=== PATIENT | male | born 1980 | race Caucasian/White ===

== ENCOUNTER 2019-06-30 06:24 | Emergency (ER) ==
[2019-06-30 06:29] VITALS: BP 174/100; TEMP 98.2; BMI 32.4
[2019-06-30] MEDS: SODIUM CHLORIDE 1,000 ML IV STA (06:48)
--- NOTE | 2019-06-30 06:49 | ED.PDOC ---
General Stated Complaint: Patient is a 38 year old male who has no medical problems who comes to the ER with complains of right lower quadrant abdominal pain that started 2 hours ago. Woke him from bed. States has some trouble urinating. Time Seen by Physician: 06:38 Mode of Arrival: Walk-In Information Source: Patient Exam Limitations: No limitations Nursing and Triage Documentation Reviewed and Agree: Yes Does patient meet sepsis criteria?: No System Inflammatory Response Syndrome: Not Applicable <GIOVANNI MONIQUE - Last Filed: 06/30/19 07:05> <FLYNN CROSS - Last Filed: 06/30/19 10:03> ED Provider: Dr. FLYNN CROSS Chief Complaint: Abdominal Pain Primary Care Provider: LIONEL ALBRIGHT Sepsis Protocol: For patient's 13 years and over: Temp is 96.8 and below OR 101 and greater Pulse >90 BPM Resp >20/minute Acutely Altered Mental Status Are patient's symptoms suggestive of a new infection, such as: -Pneumonia -Skin, Soft Tissue -Endocarditis -UTI -Bone, Joint Infection -Implantable Device -Acute Abdominal Infection -Wound Infection -Meningitis -Blood Stream Catheter Infection -Unknown GI Complaint Exam - Abdominal Pain Complaint/Exam Onset: Sudden Duration: 2 hours Symptoms Are: Still present Timing: Constant Initial Severity: Severe Current Severity: Severe Location of Pain: RLQ Character: Reports: Aching, Throbbing Alleviating: Reports: None Associated Signs and Symptoms: Denies: Nausea, Vomiting AAA Risk Factors: Reports: None Cardiac Risk Factors: Reports: Smoking Testicular Torsion Risk Factors: Reports: None Surgical Obstruction Risk Factors: Reports: None Related Surgical History: Reports: None Differential Diagnoses: Appendicitis, Bowel Obstruction, Diverticulitis, Pancreatitis, Renal Colic, Ureteral Stone, UTI Quality Indicator For Non-Traumatic Chest Pain/Syncope: EKG Performed <GIOVANNI MONIQUE - Last Filed: 06/30/19 07:05> Review of Systems - Review Of Systems Constitutional: Reports: No symptoms Eyes: Reports: No symptoms Ears, Nose, Mouth, Throat: Reports: No symptoms Respiratory: Reports: No symptoms Cardiac: Reports: No symptoms GI: Reports: Abdominal pain, Nausea, Poor appetite : Reports: No symptoms Musculoskeletal: Reports: No symptoms Skin: Reports: No symptoms Neurological: Reports: No symptoms Endocrine: Reports: No symptoms Hematologic/Lymphatic: Reports: No symptoms All Other Systems: Reviewed and Negative <GIOVANNI MONIQUE - Last Filed: 06/30/19 07:05> Past Medical History - Past Medical History Endocrine: Reports: None Cardiovascular: Reports: None Respiratory: Reports: None Hematological: Reports: None Gastrointestinal: Reports: None Genitourinary: Reports: None Neuro/Psych: Reports: None Musculoskeletal: Reports: None Cancer: Reports: None - Surgical History General Surgical History: Reports: None - Family History Family History: Reports: None - Social History Smoking Status: Current every day smoker, Heavy tobacco smoker Hx Substance Use: No Alcohol Screening: Occasionally - Immunizations Tetanus Shot up to Date: Yes <GIOVANNI MONIQUE Filed: 06/30/19 07:05> Physical Exam - Physical Exam Appearance: Ill-appearing, Obese Ill-appearing: Moderate Pain Distress: Severe Eyes: COURTNEY, EOMI, Conjunctiva clear Neck: Supple Respiratory: Airway patent, Breath sounds clear, Breath sounds equal, Respirations nonlabored Cardiovascular: RRR, Pulses normal, No rub, No murmur GI/: Soft, Tender, Bowel sounds hypoactive Musculoskeletal: Normal strength, ROM intact, No edema, No calf tenderness Skin: Warm, Dry, Normal color Neurological: Sensation intact, Motor intact, Cranial nerves intact, Alert, Oriented Psychiatric: Anxious <GIOVANNI MONIQUE Filed: 06/30/19 07:05> Interpretation - Radiology Interpretation Radiology Interpretation By: Radiologist Radiology Results: Positive (MILDLY OBSTRUCTING STONE) <FLYNN CROSS Filed: 06/30/19 10:03> Re-Evaluation - Re-Evaluation Time of Re-Evaluation: 07:00 Status: Improved Vital Signs Stable: Yes Pain Level: 0 Appearance: NAD Lungs: Clear Skin: Warm and Dry Neuro: Alert and Oriented X3 CV: RRR - Re-Evaluation Time of Re-Evaluation: 09:19 Status: Improved Vital Signs Stable: Yes Pain Level: 0 Appearance: NAD Skin: Warm and Dry Neuro: Alert and Oriented X3 CV: RRR (IMAGING DISCUSSED) <AMERICAFLYNN Last Filed: 06/30/19 10:03> Physician Notification - Case Discussed Endorsed To/Discussed With: Dr. Barry Time of Discussion: 07:05 <GIOVANNI MONIQUE Filed: 06/30/19 07:05> - Case Discussed Physician Notified: jesse hewitt Time of Notification: 09:58 ( pernephric standing discussed he does not want antibiotic issued or given to the pt .he will see pt in am 07/01/19) <FLYNN CROSS - Last Filed: 06/30/19 10:03> Critical Care Note - Critical Care Note Total Time (mins): 35 <GIOVANNI MONIQUE - Last Filed: 06/30/19 07:05> - Critical Care Note Total Time (mins): 0 <FLYNN CROSS - Last Filed: 06/30/19 10:03> Course - Course Hematology/Chemistry: 06/30/19 06:40 <GIOVANNI MONIQUE - Last Filed: 06/30/19 07:05> - Course Hematology/Chemistry: 06/30/19 06:40 06/30/19 06:40 <FLYNN CROSS - Last Filed: 06/30/19 10:03> - Course Orders, Labs, Meds: Lab Review 06/30/19 06/30/19 06/30/19 06:40 06:40 06:40 WBC 9.62 RBC 5.12 Hgb 16.4 Hct 46.1 MCV 90.0 MCH 32.0 H MCHC 35.6 H RDW Coeff of Ryan 12.6 Plt Count 304 Immature Gran % (Auto) 0.3 Neut % (Auto) 62.1 Lymph % (Auto) 24.2 Jewell % (Auto) 10.2 H Eos % (Auto) 2.6 Baso % (Auto) 0.6 Immature Gran # (Auto) 0.0 Neut # (Auto) 6.0 Lymph # (Auto) 2.3 Jewell # (Auto) 1.0 Eos # (Auto) 0.3 Baso # (Auto) 0.1 Sodium 137.1 Potassium 3.78 Chloride 105.1 Carbon Dioxide 21.8 L Anion Gap 13.98 BUN 10.9 Creatinine 0.94 Estimated GFR (MDRD) 90.00 BUN/Creatinine Ratio 11.59 Glucose 142.1 H Calcium 9.33 Total Bilirubin 0.84 AST 43.6 ALT 65.0 H Alkaline Phosphatase 65.7 Total Creatine Kinase 89.0 Troponin I < 0.012 Total Protein 7.45 Albumin 4.49 Globulin 2.96 Albumin/Globulin Ratio 1.51 Amylase 48.0 Lipase 41.3 Orders Category Date Time Status EKG-(ED ONLY) Stat CARDIO 06/30/19 06:52 Completed NPO REMINDER: IMAGING ONCE CARE 06/30/19 06:54 Active ED IV/MEDIPORT/POWERPORT .ONCE EMERGENCY 06/30/19 06:44 Active AMYLASE Stat LAB 06/30/19 06:40 Completed CBC W/ AUTO DIFF Stat LAB 06/30/19 06:40 Completed COMPREHENSIVE METABOLIC PANEL Stat LAB 06/30/19 06:40 Completed CREATINE KINASE Stat LAB 06/30/19 06:40 Completed LIPASE Stat LAB 06/30/19 06:40 Completed TROPONIN I Stat LAB 06/30/19 06:40 Completed URINALYSIS C & S IF INDICATED Stat LAB 06/30/19 06:44 Uncollected 0.9 % Sodium Chloride [Saline Flush] MEDS 06/30/19 06:44 Active 1 syr IVF PRN PRN Ketorolac Tromethamine [Toradol] MEDS 06/30/19 07:05 Discontinued 30 mg IVP ONCE STA Morphine Sulfate [Morphine 4 mg/ml Vial] MEDS 06/30/19 06:44 Discontinued 8 mg IVP ONCE STA Ondansetron HCl/Pf [Zofran 4 mg/2 ml] MEDS 06/30/19 06:44 Discontinued 4 mg IVP ONCE STA Sodium Chloride 0.9% [Sodium Chloride] 1,000 ml MEDS 06/30/19 06:[address] ABDOMEN/PELVIS W/WO CONTRAS Stat RADS 06/30/19 06:53 Completed Medications Generic Name Dose Route Start Last Admin Trade Name Freq PRN Reason Stop Dose Admin Sodium Chloride 1 syr 06/30/19 06:44 06/30/19 06:48 Saline Flush IVF 1 syr PRN PRN Administration To flush IV Discontinued Medications Generic Name Dose Route Start Last Admin Trade Name Freq PRN Reason Stop Dose Admin Sodium Chloride 1,000 mls @ 1,000 mls/hr 06/30/19 06:44 06/30/19 06:48 Sodium Chloride IV 06/30/19 07:43 1,000 mls/hr BOLUS STA Administration Ketorolac Tromethamine 30 mg 06/30/19 07:05 06/30/19 07:10 Toradol IVP 06/30/19 07:06 30 mg ONCE STA Administration Morphine Sulfate 8 mg 06/30/19 06:44 06/30/19 06:53 Morphine 4 Mg/Ml Vial IVP 06/30/19 06:45 8 mg ONCE STA Administration Ondansetron HCl 4 mg 06/30/19 06:44 06/30/19 06:52 Zofran 4 Mg/2 Ml IVP 06/30/19 06:45 4 mg ONCE STA Administration Vital Signs: Temp Pulse Resp BP Pulse Ox 06/30/19 06:25 98.2 F 89 20 174/100 H 97 Departure <GIOVANNI MONIQUE - Last Filed: 06/30/19 07:05> - Departure Time of Disposition: 09:59 (EZEKIEL PRESENT AT ALL TIMES ) Pt referred to PMD for follow-up: Yes IPMP verified?: No Disposition Discussed With: Patient <FLYNN CROSS - Last Filed: 06/30/19 10:03> - Departure Disposition: HOME SELF-CARE Discharge Problem: Abdominal pain, Renal stone Instructions: Kidney Stones (ED), Renal Colic (ED), Flank Pain (ED), How to Strain Your Urine (ED) Condition: Good Additional Instructions: Please call your Family Physician as soon as possible to schedule a follow-up appointment.Doctor molina will see you at 8:30 am 07/01/19. please take your disc and reports . As far as the alopecia of facial sanders please see your MD . Prescriptions: Tamsulosin HCl [Flomax] 0.4 mg PO DAILY #4 cap.er.24h Allergies/Adverse Reactions: Allergies No Known Allergies Allergy (Unverified 06/30/19 06:34) Home Medications: Ambulatory Orders Tamsulosin HCl [Flomax] 0.4 mg PO DAILY #4 cap.er.24h 06/30/19
[2019-06-30] MEDS: ZOFRAN 4 MG/2 ML IVP STA (06:52)
[2019-06-30] MEDS: MORPHINE 4 MG/ML VIAL IVP STA (06:53)
[2019-06-30] MEDS: TORADOL IVP STA (07:10)
--- NOTE | 2019-06-30 08:15 | CT ---
EXAM: CT ABDOMEN AND PELVIS HISTORY: Right lower quadrant pain. TECHNIQUE: CT abdomen and pelvis with and without intravenous contrast. Images were reconstructed u sing 5 mm section thickness. Reformations were prepared. FINDINGS: No comparison. There is perinephric fat stranding on the right with mild hydronephrosis and generalized decreased en hancement of the right renal cortex relative to contralateral. There is a 3 x 4 x 5 mm calculus with in the right ureter at the level of the upper anatomic pelvis, general level of S1. The left kidney and ureter appear normal. No other renal calculi are definitely seen. Urinary bladder is unremarkab le. The liver has mild fatty infiltration. Spleen, gallbladder, pancreas and adrenal glands appear anna l. Normal abdominal aorta. Stomach is unremarkable. Normal appendix is seen. Normal bowel gas pat tern. There is no prostate enlargement. Abdominal wall is intact without herniation. The bones are within normal limits. Lung bases are clear. There is no pneumoperitoneum. IMPRESSION: 1. Mild right renal obstruction secondary to a lower ureteral calculus. 2. Fatty liver.
[2019-06-30] MEDS: NORCO 10-325 PO STA (10:18)
== END 2019-06-30 11:08 | disposition home or self-care (01) ==
LOC: ED 06:24
DX: N20.0 Calculus of kidney (principal); F17.210 Nicotine dependence, cigarettes, uncomplicated; L65.9 Nonscarring hair loss, unspecified
CPT/HCPCS: 36415; 80053; 82150; 82550; 83690; 84484; 85025; 93005; 93010; 96361; 96374; 96375; 99283

== ENCOUNTER 2025-06-06 02:19 | Observation (INO) ==
[2025-06-06] MEDS: SOLU-MEDROL 125 MG IVP ONE (02:23)
[2025-06-06] MEDS: DUONEB NEB STA ×2 (02:30→04:10)
[2025-06-06] MEDS: ALBUTEROL 0.083% NEB NEB STA (02:40)
[2025-06-06] MEDS ORDERED: ALBUTEROL 0.083% NEB NEB ONE (02:40)
[2025-06-06] MEDS ORDERED: ALBUTEROL 0.083% NEB NEB STA (02:40)
--- NOTE | 2025-06-06 02:40 | ED.PDOC ---
General [facility] ED Provider: Dr. SHAYY RICHMOND DO Chief Complaint: Shortness of Air Stated Complaint: "I cant get my breath" 44-year-old white male presents at to [place] in the morning with complaints of "I cannot get my breath". Patient reports this has been going on for 2 years. He states it has been steadily getting worse. He has been seen in the emergency room once or twice before but nobody has been able to explain to him what is going on. His only significant medical history is hypertension and he is on metoprolol for this. 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 He states he quit smoking about 8 months ago when this got bad and prior to that had been a smoker since 18 or 19 years of age smoking 1 pack maybe a little bit more day. He denies any drug or alcohol use and specifically denies any current illicit drug use. He has never been told he has COPD and has never been treated for asthma or COPD and does not use any breathing medicines at this time. He states his breathing is gotten to the point that it is difficult for him to even get a deep breath and he feels like there is a heavy pressure on his chest preventing it. Patient is audibly wheezing from across the room as he sits on the stretcher explaining what is going on. He denies any recent illnesses and specifically denies any headache, runny nose, sore throat, fever, chills, chest congestion, cough, abdominal pain, pain on urination, rashes or sores, nausea, vomiting, diarrhea, black tarry stools, bright red rectal blood, unilateral weakness, swelling in feet or legs, or vision changes. Time Seen by Provider: 06/06/25 02:25 Mode of Arrival: Walk-In Information Source: Patient Exam Limitations: No limitations Nursing and Triage Documentation Reviewed and Agree: Yes Opioid Naive vs. Tolerant Does Patient Take Opioids?: No Is Patient Opioid Naive?: Yes What is Opioid Naive?: *Opioid Naive implies the patient is not already taking opioids or not chronically receiving opioids on a daily basis. *PRN dosing is not "usually" associated with tolerance. *Patients are at higher risk of over-sedation and aspiration. Is Patient Opioid Tolerant?: No What is Opioid Tolerant?: *Opioid Tolerance implies less than the expected response to an opioid. *Acquired tolerance is defined by the patient taking 60mg of oral morphine daily (or equianalgesic dose of another opioid) for 1 week or more. *Often associated with chronic pain. *May take more than usual dose to achieve desired pain control. Review of Systems Review Of Systems Constitutional: Reports Weakness; Denies Chills or Fever Eyes: Denies Blurred vision, Vision change or Drainage Ears, Nose, Mouth, Throat: Denies Ear pain, Nose discharge or Throat pain Respiratory: Denies Cough or Shortness of Breath Cardiac: Denies Chest pain, Edema or Palpitations GI: Denies Abdominal pain, Constipated, Diarrhea, Nausea or Vomiting : Denies Burning or Dysuria Musculoskeletal: Denies Back pain Skin: Denies Bruising Neurological: Denies Depressed or Emotional problems Endocrine: Denies Excessive sweating PFSH PFSH Family History Mother Heart attack Physical Exam Physical Exam Appearance: Reports Well-nourished and Obese Ill-appearing: Moderate Pain Distress: Moderate Eyes: Reports COURTNEY, EOMI and Conjunctiva clear; Denies Conjunctiva inflammed ENT: Reports Ears normal, Nose normal and Oropharynx normal; Denies Rhinorrhea or Dry mucosa Neck: Supple Respiratory: Reports Airway patent, Breath sounds clear, Breath sounds equal and Respirations nonlabored; Denies Crackles, Rhonchi or Wheezes Cardiovascular: Reports RRR, Pulses normal and No murmur GI/: Reports Soft, Nontender, Bowel sounds normal and Other (Abdomen is markedly obese and protuberant but not distended. Soft with normal active bowel sounds. Not evaluated for masses or megaly.) Musculoskeletal: Reports Normal strength, ROM intact and No edema Skin: Reports Warm, Dry and Normal color Neurological: Reports Motor intact, Reflexes intact, Cranial nerves intact, Alert, Oriented and Other (Gait normal.) Psychiatric: Reports Affect appropriate and Mood appropriate Interpretation EKG Interpretation EKG Interpretation By: ED Physician (EKG is interpreted by this provider Dr. Shayy Richmond. Interpretation done at 023 8 AM.) Time of EKG #1: 02:37 Rate: Normal Rhythm: Sinus Ectopy: None [place]: NL ST Segment: Normal Interpretation: Normal sinus rhythm rate 89. Nl axis nl intervals no STEMI. Normal EKG. Radiology Interpretation Radiology Interpretation By: Radiologist (Chest x-ray viewed by this provider, Shayy Richmond DO. No acute pathology. No infiltrates, no bony deformities, cardiac silhouette within normal. X-ray over read by radiologist on-call.) Radiology Results: Negative Exam Interpreted: CXR Radiology Interpretation By: Radiologist Radiology Results: Negative Exam Interpreted: CT Scan (CTA PE protocol was obtained. Not reviewed by this provider but read by radiologist is negative for any acute pulmonary embolism or significant abnormalities.) Physician Progress Note Physician Progress Note: 44-year-old white male presents at to [place] in the morning with complaints of "I cannot get my breath". Patient reports this has been going on for 2 years. He states it has been steadily getting worse. He has been seen in the emergency room once or twice before but nobody has been able to explain to him what is going on. His only significant medical history is hypertension and he is on metoprolol for this. 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 Patient's complaints are reviewed. Exam and labs and x-ray are obtained. Initial concern was for cardiac etiology however EKG does not show any alarming findings and is indeed normal. He has and mildly elevated blood pressure but has not taken blood pressure meds today. He continues to have audible wheezing that can be heard across the room, despite having received an hour-long nebulizer with albuterol and DuoNeb as well as Solu-Medrol IV. We have also given budesonide pulmonary neb without significant improvement. Will repeat her DuoNeb pending additional evaluation. Because of patient's failure to improve significantly with appropriate interventions, concern for underlying pathology such as PE prompted me to go ahead and obtain CTA PE protocol. This was read as normal and without any evidence of pulmonary embolism. Patient has improved to the point that he is no longer audibly wheezing from across the room but still continues to have diffuse wheezing. Discussed with him options including transferring to an alternative hospital for possible pulmonary consult versus following up outpatient versus staying here. Patient has [place] Medicaid and does not have established pulmonary care. Is unclear if he even has a PCP. Discussed with him considering admission here for tune up and getting his breathing better and then we can set up for him to see outpatient pulmonology and further testing as indicated. Specifically he will need PFTs and pulmonary consult. Patient is in agreement with this course of action. Will admit to hospitalist here. Discussed with nurse practitioner Marina at tx 6 AM this morning possible admission. She accepts for admission and will have me do bridging orders until her counterpart comes in at 7. Patient admitted to observation telemetry. Course Course 06/06/25 02:30 06/06/25 02:30 Orders, Labs, Meds: Lab Review 06/06/25 06/06/25 06/06/25 02:30 03:15 04:48 WBC 10.15 RBC 5.79 Hgb 17.6 Hct 51.7 MCV 89.3 MCH 30.4 MCHC 34.0 RDW Coeff of Ryan 12.9 Plt Count 384 Immature Gran % (Auto) 0.1 Neut % (Auto) 42.2 Lymph % (Auto) 38.1 Hood % (Auto) 10.1 H Eos % (Auto) 8.6 H Baso % (Auto) 0.9 Neut # (Auto) 4.3 Lymph # (Auto) 3.9 H Hood # (Auto) 1.0 Eos # (Auto) 0.9 H Baso # (Auto) 0.1 Immature Gran # (Auto) 0.0 Sodium 141.0 Potassium 3.96 Chloride 101.6 Carbon Dioxide 27.1 Anion Gap 16.26 BUN 10.2 Creatinine 1.04 Estimated GFR (MDRD) 78.00 BUN/Creatinine Ratio 9.80 Glucose 89.2 Calcium 9.53 Total Bilirubin 0.80 AST 42.9 ALT 49.2 Alkaline Phosphatase 82.4 Troponin I < 0.012 NT-Pro-B Natriuret Pep 50 Total Protein 7.86 Albumin 4.55 Globulin 3.31 Albumin/Globulin Ratio 1.37 D-Dimer 354.77 Urine Color Yellow Urine Clarity Clear Urine pH 7.0 Ur Specific Jelm 1.015 Urine Protein Negative Urine Glucose (UA) Negative Urine Ketones Negative Urine Blood Trace-intact H Urine Nitrite Negative Urine Bilirubin Negative Urine Urobilinogen 0.2 Ur Leukocyte Esterase Trace H Urine Microscopic RBC 0-2 Urine Microscopic WBC 0-2 Ur Squamous Epith Cells 0-2 Adenovirus (PCR) Not detected B. pertussis DNA (PCR) Not detected B.parapertussis DNA PCR Not detected C. pneumoniae DNA (PCR) Not detected Coronavirus OC43 (PCR) Not detected Coronavirus HKU1 (PCR) Not detected Coronavirus 229E (PCR) Not detected Coronavirus NL63 (PCR) Not detected Human Metapneumovir PCR Not detected Influenza A (H1) PCR Not detected Influ A (H1N1/09) PCR Not detected Influenza A (H3) PCR Not detected Influenza Type A (PCR) Not detected Influenza B (RT-PCR) Not detected M. pneumoniae (PCR) Not detected Parainfluenza 1 (PCR) Not detected Parainfluenza 2 (PCR) Not detected Parainfluenza 3 (PCR) Not detected Parainfluenza 4 (PCR) Not detected RSV (PCR) Not detected Entero/Rhino (PCR) Not detected SARS-CoV-2 (PCR) Not detected Orders Category Date Time Status PLACE PATIENT OBSERVATION .TO [facility] (MONITORED BED ADMISSION 06/06/25 06:08 Active ) EKG-(ED ONLY) Stat CARDIO 06/06/25 02:40 Completed NEBULIZER TREATMENT Stat CARDIO 06/06/25 02:53 Completed NEBULIZER TREATMENT Stat CARDIO 06/06/25 03:21 Completed NEBULIZER TREATMENT Stat CARDIO 06/06/25 04:11 Ordered ACTIVITY TID CARE 06/06/25 06:10 Active NPO REMINDER: IMAGING ONCE CARE 06/06/25 04:16 Completed TELEMETRY MONITORING TELE CARE 06/06/25 06:12 Active VITAL SIGNS Q4HR CARE 06/06/25 06:08 Active VTE PREVENTION .ADIRANE and SCD 24 Hours CARE 06/06/25 06:08 Active CBC W/ AUTO DIFF Stat LAB 06/06/25 02:30 Completed CMP [COMPREHENSIVE METABOLIC PANEL] Stat LAB 06/06/25 02:30 Completed D-DIMER Stat LAB 06/06/25 02:30 Completed PROBNP ED [NT-PROBNP(ED)] Stat LAB 06/06/25 02:30 Completed RESPIRATORY PANEL 2.1 (PCR) Stat LAB 06/06/25 03:15 Completed TROPONIN I Stat LAB 06/06/25 02:30 Completed URINALYSIS C & S IF INDICATED Stat LAB 06/06/25 04:48 Completed Albuterol Sulfate 0.083% Neb [Albuterol 0.083% Neb] Meds 06/06/25 02:32 Discontinued 7.5 mg NEB .STK-MED ONE Albuterol Sulfate 0.083% Neb [Albuterol 0.083% Neb] Meds 06/06/25 02:53 Discontinued 7.5 mg NEB ONCE STA Budesonide [Pulmicort 1 mg/2 ml] Meds 06/06/25 03:21 Discontinued 1 mg NEB ONCE STA Ceftriaxone/D5w 2 gm Premix [Rocephin 2 gm/50 ml D5w] Meds 06/06/25 03:00 Discontinued 2 gm in 50 ml IV ONCE Iohexol [Omnipaque 350 mg/ml 100Ml] Meds 06/06/25 04:32 Discontinued 100 ml IVP ONCE ONE Ipratropium/Albuterol Neb [Duoneb] Meds 06/06/25 02:28 Discontinued 3 ml NEB .STK-MED ONE Ipratropium/Albuterol Neb [Duoneb] Meds 06/06/25 02:45 Discontinued 3 ml NEB ONCE STA Ipratropium/Albuterol Neb [Duoneb] Meds 06/06/25 04:10 Discontinued 3 ml NEB ONCE STA Magnesium Sulfate in Water [Magnesium Sulf 2 G/50 ml Meds 06/06/25 02:38 Discontinued Bag] 2 gm in 50 ml IV .STK-MED Magnesium Sulfate in Water [Magnesium Sulf 2 G/50 ml Meds 06/06/25 02:40 Discontinued Bag] 2 gm in 50 ml IV .STK-MED Magnesium Sulfate in Water [Magnesium Sulf 2 G/50 ml Meds 06/06/25 02:57 Discontinued Bag] 2 gm in 50 ml IV ONCE Methylprednisolone Sod Succ/Pf [Solu-Medrol 125 mg] Meds 06/06/25 02:32 Discontinued 125 mg .ROUTE .STK-MED ONE Methylprednisolone Sod Succ/Pf [Solu-Medrol 125 mg] Meds 06/06/25 02:52 Discontinued 125 mg IVP ONCE ONE RESUSCITATION STATUS Routine OTHERS 06/06/25 06:08 Ordered CHEST, 1V AP ONLY Stat RADS 06/06/25 02:40 Completed CTA CHEST PE PROTOCOL Stat RADS 06/06/25 04:16 Completed Medications Generic Name Dose Route Start Last Admin Trade Name Freq PRN Reason Stop Dose Admin Enalaprilat 1.25 mg 06/06/25 06:30 06/06/25 06:42 Enalaprilat Dihydrate 1.25 Mg/Ml Vial IVP 1.25 mg Q6HR FAITH Administration Enalaprilat 1.25 mg 06/06/25 06:15 Enalaprilat Dihydrate 1.25 Mg/Ml Vial IVP Q6H PRN elevated bp Discontinued Medications Generic Name Dose Route Start Last Admin Trade Name Freq PRN Reason Stop Dose Admin Albuterol Sulfate 7.5 mg 06/06/25 02:53 06/06/25 02:40 Albuterol Sulfate 0.083% Vial.Ida [place] 06/06/25 02:54 7.5 mg ONCE STA Administration Albuterol/Ipratropium 3 ml 06/06/25 02:45 06/06/25 02:30 Ipratropium/Albuterol Vial.Ida [facility] 06/06/25 02:46 3 ml ONCE STA Administration Albuterol/Ipratropium 3 ml 06/06/25 04:10 06/06/25 04:10 Ipratropium/Albuterol Vial.Ida [facility] 06/06/25 04:11 3 ml ONCE STA Administration Budesonide 1 mg 06/06/25 03:21 06/06/25 03:42 Budesonide 1 Mg/[address] 06/06/25 03:22 1 mg ONCE STA Administration MAGNESIUM SULFATE IN WATER 2 gm in 50 mls @ 150 mls/hr 06/06/25 02:57 06/06/25 02:41 Magnesium Sulf 2 G/50 Ml Bag IV 06/06/25 03:16 150 mls/hr ONCE STA Administration CEFTRIAXONE/D5W 2 GM PREMIX 2 gm in 50 mls @ 100 mls/hr 06/06/25 03:00 06/06/25 03:16 Rocephin 2 Gm/50 Ml D5w IV 06/06/25 03:29 100 mls/hr ONCE ONE Administration Iohexol 100 ml 06/06/25 04:32 06/06/25 04:37 Iohexol 350 Mg/Ml 100ml IVP 06/06/25 04:33 100 ml ONCE ONE Administration Methylprednisolone Sodium Succinate 125 mg 06/06/25 02:52 06/06/25 02:23 Methylprednisolone Sod Succ/Pf 125 Mg/2 Ml Vial IVP 06/06/25 02:53 125 mg ONCE ONE Administration Vital Signs: Temp Pulse Resp BP Pulse Ox 07/28/25 05:30 90 22 H 160/103 H 92 L 06/06/25 03:45 87 14 167/121 H 93 L 06/06/25 02:47 97.3 F L 98 26 H 201/130 H 97 Bridging ED admission orders are submitted and patient will be transferred to floor. Discharge Plan Discharge Patient Disposition: PLACED OBSERVATION Discharge Problem: COPD exacerbation Did you review [place] BANDER OPERATOR for ALL controlled substances?: Not Applicable ED Provider: SHAYY RICHMOND
[2025-06-06] MEDS: MAGNESIUM SULF 2 G/50 ML BAG 2 GM/50 ML PIGGYBACK IV ONE ×2 (02:41→02:48)
[2025-06-06] MEDS: MAGNESIUM SULF 2 G/50 ML BAG 2 GM/50 ML PIGGYBACK IV STA (02:41)
[2025-06-06] MEDS: DUONEB NEB ONE (02:47)
[2025-06-06] MEDS: SOLU-MEDROL 125 MG ONE (02:47)
[2025-06-06] MEDS: MAGNESIUM SULF 2 G/50 ML BAG 0 GM/0 ML PIGGYBACK IV ONE (02:47)
[2025-06-06] MEDS: ALBUTEROL 0.083% NEB NEB ONE (02:47)
[2025-06-06] MEDS ORDERED: SOLU-MEDROL 125 MG 125 MG in SODIUM CHLORIDE 50 ML IV ONE (02:48)
[2025-06-06 02:52] LABS: IMMATURE GRANULOCYTE # (AUTO) 0.0 (0.0-1.0); IMMATURE GRANULOCYTE % (AUTO) 0.1 % (0.0-5.0); RDW COEFFICIENT OF VARIATION 12.9 % (11.6-14.8)
[2025-06-06 02:53] LABS: CREATININE 1.04 mg/dL (0.60-1.10)
[2025-06-06] MEDS: ROCEPHIN 2 GM/50 ML D5W 2 GM/50 ML BAG IV ONE (03:16)
[2025-06-06 03:42] LABS: BORDETELLA PARAPERTUSSIS (PCR) NOT DETECTED (NOT DETECT); BORDETELLA PERTUSSIS (PCR) NOT DETECTED (NOT DETECT); CHLAMYDIA PNEUMONIAE (PCR) NOT DETECTED (NOT DETECT); CORONAVIRUS 229E (PCR) NOT DETECTED (NOT DETECT); CORONAVIRUS HKU1 (PCR) NOT DETECTED (NOT DETECT); CORONAVIRUS NL63 (PCR) NOT DETECTED (NOT DETECT); CORONAVIRUS OC43 (PCR) NOT DETECTED (NOT DETECT); HUMAN METAPNEUMOVIRUS (PCR) NOT DETECTED (NOT DETECT); HUMAN RHINOVIRUS/ENTEROV (PCR) NOT DETECTED (NOT DETECT); INFLUENZA A H1 (PCR) NOT DETECTED (NOT DETECT); INFLUENZA A H1-2009 (PCR) NOT DETECTED (NOT DETECT); INFLUENZA A H3 (PCR) NOT DETECTED (NOT DETECT); INFLUENZA B (PCR) NOT DETECTED (NOT DETECT); MYCOPLASMA PNEUMONIAE (PCR) NOT DETECTED (NOT DETECT); PARAINFLUENZA VIRUS 1 (PCR) NOT DETECTED (NOT DETECT); PARAINFLUENZA VIRUS 2 (PCR) NOT DETECTED (NOT DETECT); PARAINFLUENZA VIRUS 3 (PCR) NOT DETECTED (NOT DETECT); PARAINFLUENZA VIRUS 4 (PCR) NOT DETECTED (NOT DETECT); RESPIRATORY SYNCYTIAL V (PCR) NOT DETECTED (NOT DETECT); SARS_COV_2 (PCR) NOT DETECTED (NOT DETECT)
[2025-06-06] MEDS: PULMICORT 1 MG/2 ML NEB STA (03:42)
[2025-06-06 04:11] LABS: ADENOVIRUS (PCR) NOT DETECTED (NOT DETECT)
[2025-06-06] MEDS: OMNIPAQUE 350 MG/ML 100ML IVP ONE (04:37)
[2025-06-06 04:56] LABS: GLUCOSE, URINE (UA) Negative (NEGATIVE); LEUKOCYTE ESTERASE ,URINE Trace (NEGATIVE); URINE, BLOOD Trace-intact (NEGATIVE)
[2025-06-06 04:57] LABS: SQUAMOUS EPITHELIAL CELL,UR 0-2 (0-5); URINE RBC, MICROSCOPIC 0-2 (0-2); URINE WBC, MICROSCOPIC 0-2 (0-2)
--- NOTE | 2025-06-06 05:13 | CT ---
EXAM: CT ANGIOGRAPHY OF THE CHEST HISTORY: Dyspnea and wheezing TECHNIQUE: 1.[address] of the CT angiography protocol. Multiplanar and three-dimensional reformations were performed. FINDINGS: Technically adequate for evaluation of the pulmonary arteries. No pulmonary artery filling defect. Normal heart, great vessels and pericardium. No pulmonary parenchymal abnormality. No acute findings of the upper abdomen. IMPRESSION: 1. No evidence of pulmonary artery thrombus 2. No acute findings of the chest All CT scans are performed using dose optimization techniques as appropriate to the performed exam and include at least one of the following: Automated exposure control, adjustment of the mA and/or kV according to size, and the use of iterative reconstruction technique.
--- NOTE | 2025-06-06 05:21 | DI ---
EXAM: CHEST, ONE-VIEW HISTORY: Shortness of breath FINDINGS: Cardiac and mediastinal contours are normal. Pulmonary vasculature is normal. Lungs are clear. Bony thorax is unremarkable. IMPRESSION: Within normal limits
[2025-06-06] MEDS ORDERED: VASOTEC IV IVP PRN (06:15)
[2025-06-06] MEDS: VASOTEC IV IVP SCH (06:42)
[2025-06-06 07:41] VITALS: BMI 34.7
[2025-06-06] MEDS: ZITHROMAX PO SCH (08:56)
[2025-06-06] MEDS: TOPROL XL PO SCH (08:56)
[2025-06-06] MEDS ORDERED: LOVENOX SUBCUT SCH (09:00)
[2025-06-06] MEDS ORDERED: METOPROLOL SUCCINATE 25 MG PO SCH (09:00)
--- NOTE | 2025-06-06 09:25 | PCM ---
Date of Service Date Seen by Provider: 06/06/25 Time Seen by Provider: 08:50 Admit Day/Time Admission Date: 06/06/25 Admission Time: 06:00 Reason for Admission Chief Complaint: COPD, EXACERBATION Hospital Provider Hospital Provider: LYRIC EDWARDS, [facility] History of Present Illness History of Present Illness: 44 yo male with pmh of hypertension presented to the ER with complaints of shortness of breath. States that he has been having an ongoing problem over the last 3 months and it continues to worsen. He was seen in this ER in March and was treated for high blood pressure, tachycardia, and sob. Given nebs and sent home with inhaler and metoprolol. Does not have a PCP and has just been taking what he has had of the medications. Reports symptoms of cough that is occasionally productive with clear and sometimes green sputum, sob on exertion, and chest pressure. Denies any fever, chills, palpitations, n/v/d, edema, or other symptoms. Reports he quit smoking 7 months ago when he first started having the issues and the shortness of breath continues to worsen. Reports difficulty climbing his stairs without getting sob. Does not feel his rescue inhaler is helpful so he does not find himself using it often. Also states that he had a PFT done approx. 8 years ago and showed mild COPD then. ER work-up negative for acute findings. He was given multiple debs, steroids, and vasotec to treat his high BP. Admitted to med/surg observation. Case Discussed With Case Discussed With: Patient's case was discussed with the ER Physicians, Dr. Richmond. PSYCHIATRIC Family History Mother Heart attack Allergies Allergies Allergy/AdvReac Type Severity Reaction Status Date / Time No Known Allergies Allergy Verified 06/06/25 02:49 Current Medications Home Medications Albuterol/Ipratropium (Ipratropium/Albuterol Vial.Neb) 3 ml NEB RTQ6H FAITH Azithromycin (Azithromycin 250 Mg Tablet) 500 mg PO DAILY [facility]ITH Stop: 06/09/25 08:59 Last Admin: 06/06/25 08:56 Dose: 500 mg CEFTRIAXONE/D5W 1 GM PREMIX (Rocephin 1 Gm/50 Ml D5w) 1 gm in 50 mls @ 100 mls/hr IV DAILY [facility] Stop: 06/10/25 08:59 Methylprednisolone Sodium Succinate (Methylprednisolone Sod Succ/Pf 40 Mg/Ml Vial) 40 mg IVP Q8HR [facility] Metoprolol Succinate (Metoprolol Succinate 25 Mg Tab.Er.24h) 25 mg PO DAILY [facility] Last Admin: 06/06/25 08:56 Dose: 25 mg Sodium Chloride (0.9% Sodium Chloride 10 Ml Disp.Syrin) 1 syr IVF Q8HR [facility] albuterol sulfate 90 mcg/actuation aerosol inhaler (Ventolin HFA) 2 puff inhalation QID PRN shortness of breath or wheezing #8.5 grams 03/14/25 [Rx Confirmed 06/06/25] inhalational spacing device (Aerochamber MV spacer) #10 ea 03/14/25 [Rx Confirmed 06/06/25] metoprolol succinate 25 mg capsule sprinkle, ext. release 24 hr 25 mg PO DAILY #30 ea 03/14/25 [Rx Confirmed 06/06/25] nitroglycerin 0.4 mg sublingual tablet 0.4 mg sublingual Q5M PRN chest #14 tabs 03/14/25 [Rx Confirmed 06/06/25] Opioid Naive vs. Tolerant Does Patient Take Opioids?: No Is Patient Opioid Naive?: Yes What is Opioid Naive?: *Opioid Naive implies the patient is not already taking opioids or not chronically receiving opioids on a daily basis. *PRN dosing is not "usually" associated with tolerance. *Patients are at higher risk of over-sedation and aspiration. Is Patient Opioid Tolerant?: No What is Opioid Tolerant?: *Opioid Tolerance implies less than the expected response to an opioid. *Acquired tolerance is defined by the patient taking 60mg of oral morphine daily (or equianalgesic dose of another opioid) for 1 week or more. *Often associated with chronic pain. *May take more than usual dose to achieve desired pain control. Review of Systems Constitutional: Denies Fever, Chills or Weakness Head: Reports Normocephalic Eyes: Reports No symptoms Ears: Reports No symptoms Nose: Reports No symptoms Mouth: Reports No symptoms Throat: Reports No symptoms Cardiovascular: Reports Chest Pressure (with sob) and High Blood Pressure; Denies Chest pain, Irregular Heartbeat, Heart Murmur, Edema, Palpitations or Syncope Respiratory: Reports Cough (productive, green sputum occasionally), Shortness of air and Wheeze Gastrointestinal: Reports No symptoms Genitourinary: Reports No Symptoms Musculoskeletal: Reports No symptoms Endocrine: Reports No symptoms Hematology: Reports No symptoms Immunology: Reports No symptoms Neurological: Reports No symptoms Psychiatric: Reports No symptoms Physical examination Most Recent Vital Signs: Most Recent Vital Signs Temperature 97 F L 06/06/25 07:07 Temperature Source Temporal Artery Scan 06/06/25 07:07 Temperature Source Infrared 06/06/25 02:47 Pulse Rate 88 06/06/25 07:07 Respiratory Rate 21 H 06/06/25 07:07 Blood Pressure 160/103 H 06/06/25 05:30 Blood Pressure Left Arm 159/97 06/06/25 07:07 Blood Pressure Position Supine 06/06/25 07:07 O2 Sat by Pulse Oximetry 95 06/06/25 07:07 Oxygen Delivery Method Room Air 06/06/25 09:00 Height 6 ft 06/06/25 07:07 Weight 116 kg 06/06/25 07:07 Telemetry Type Bedside Monitor 06/06/25 07:00 Telemetry Monitoring Started 06/06/25 07:00 Telemetry Heart Rate 90 06/06/25 07:00 Telemetry SPO2 94 06/06/25 07:00 EKG [place] Interval 0.15 06/06/25 07:00 EKG QRS Interval 0.08 06/06/25 07:00 Telemetry Strip Reading NSR 06/06/25 07:00 Appearance: Positive No Apparent Distress and Alert and Oriented x3 Skin: Positive Warm, Good Turgor and Good Color HEENT: Positive Normocephalic and PERRLA Neck: Positive Supple and Midline Trachea Chest/Lungs: Positive Symmetrical With Equal Breath Sounds, Wheezes (expiratory) and Good Air Movement all 4 Lung [place] Heart: Positive RRR and Pulses Normal; Negative Irregular Rhythm, Tachycardia or Bracycardia GI/: Positive Soft, Nontender, Bowel Sounds Normal and No Distention; Negative Tender Musculoskeletal: Positive Normal Gait and Station Extremities: Positive Intact Peripheral Pulses, Stable Joints Without Laxity and Good ROM in All Joints; Negative Edema Neurological: Positive Sensation Intact, Motor intact, Reflexes Intact, Alert, Oriented and Muscle Strength 5/5 in Upper and Lower Extremities Bilaterally Psychiatric: Positive Oriented x4, Appropriate Mood and Appropriate Affect Labs This Visit Labs This Visit: Labs This Visit 06/06/25 06/06/2506/06/25 02:30 03:15 04:48 WBC 10.15 RBC 5.79 Hgb 17.6 Hct 51.7 MCV 89.3 MCH 30.4 MCHC 34.0 RDW Coeff of Ryan 12.9 Plt Count 384 Immature Gran % (Auto) 0.1 Neut % (Auto) 42.2 Lymph % (Auto) 38.1 Cassia % (Auto) 10.1 H Eos % (Auto) 8.6 H Baso % (Auto) 0.9 Neut # (Auto) 4.3 Lymph # (Auto) 3.9 H Cassia # (Auto) 1.0 Eos # (Auto) 0.9 H Baso # (Auto) 0.1 Immature Gran # (Auto) 0.0 Sodium 141.0 Potassium 3.96 Chloride 101.6 Carbon Dioxide 27.1 Anion Gap 16.26 BUN 10.2 Creatinine 1.04 Estimated GFR (MDRD) 78.00 BUN/Creatinine Ratio 9.80 Glucose 89.2 Calcium 9.53 Total Bilirubin 0.80 AST 42.9 ALT 49.2 Alkaline Phosphatase 82.4 Troponin I < 0.012 NT-Pro-B Natriuret Pep 50 Total Protein 7.86 Albumin 4.55 Globulin 3.31 Albumin/Globulin Ratio 1.37 D-Dimer 354.77 Urine Color Yellow Urine Clarity Clear Urine pH 7.0 Ur Specific Standish 1.015 Urine Protein Negative Urine Glucose (UA) Negative Urine Ketones Negative Urine Blood Trace-intact H Urine Nitrite Negative Urine Bilirubin Negative Urine Urobilinogen 0.2 Ur Leukocyte Esterase Trace H Urine Microscopic RBC 0-2 Urine Microscopic WBC 0-2 Ur Squamous Epith Cells 0-2 Adenovirus (PCR) Not detected B. pertussis DNA (PCR) Not detected B.parapertussis DNA PCR Not detected C. pneumoniae DNA (PCR) Not detected Coronavirus OC43 (PCR) Not detected Coronavirus HKU1 (PCR) Not detected Coronavirus 229E (PCR) Not detected Coronavirus NL63 (PCR) Not detected Human Metapneumovir PCR Not detected Influenza A (H1) PCR Not detected Influ A (H1N1/09) PCR Not detected Influenza A (H3) PCR Not detected Influenza Type A (PCR) Not detected Influenza B (RT-PCR) Not detected M. pneumoniae (PCR) Not detected Parainfluenza 1 (PCR) Not detected Parainfluenza 2 (PCR) Not detected Parainfluenza 3 (PCR) Not detected Parainfluenza 4 (PCR) Not detected RSV (PCR) Not detected Entero/Rhino (PCR) Not detected SARS-CoV-2 (PCR) Not detected Imaging Imaging: EXAM: CHEST, ONE-VIEW HISTORY: Shortness of breath FINDINGS: Cardiac and mediastinal contours are normal. Pulmonary vasculature is normal. Lungs are clear. Bony thorax is unremarkable. IMPRESSION: Within normal limits EXAM: CT ANGIOGRAPHY OF THE CHEST HISTORY: Dyspnea and wheezing TECHNIQUE: 1.[address] of the CT angiography protocol. Multiplanar and three-dimensional reformations were performed. FINDINGS: Technically adequate for evaluation of the pulmonary arteries. No pulmonary artery filling defect. Normal heart, great vessels and pericardium. No pulmonary parenchymal abnormality. No acute findings of the upper abdomen. IMPRESSION: 1. No evidence of pulmonary artery thrombus 2. No acute findings of the chest Review Statement Review Statement: I have independently reviewed and interpreted the labs/EKGs/imaging that were ordered by the ER provider. I have reviewed all outside records that are available currently in our EMR including imaging/notes/labs from previous visits. Plan Plan: 1. Acute COPD Exacerbation - steroids, nebs, rocephin, azith, sputum culture due to report of green sputum, needs PFT once exacerbation resolves to formally diagnose 2. Hypertension - uncontrolled, restart home medication, adjust if needed DVT Prophylaxis: Ambulation Time Spent: Greater than 80 minutes spent with patient, 50% of the time spent with this patient was devoted to counseling and coordination of care. [facility] minutes spent discussing advance care planning. Disposition: Admit to: Med/Surg Observation Full Code Discussed Plan of Care with Dr. Annabel Todd. Medications Medication Orders: Medications Ordered Category Date Time Status 0.9 % Sodium Chloride [Saline Flush] Meds 06/06/25 13:00 Active 1 syr IVF Q8HR Azithromycin [Zithromax] Meds 06/06/25 09:00 Active 500 mg PO DAILY Ceftriaxone/D5w 1 gm Premix [Rocephin 1 gm/50 ml D5w] Meds 06/07/25 09:00 Active 1 gm in 50 ml IV DAILY Ipratropium/Albuterol Neb [Duoneb] Meds 06/06/25 12:00 Active 3 ml NEB RTQ6H Methylprednisolone Sod Succ/Pf [Solu-Medrol 40 mg] Meds 06/06/25 11:00 Active 40 mg IVP Q8HR Metoprolol Succinate [Toprol Xl] Meds 06/06/25 09:00 Active 25 mg PO DAILY
[2025-06-06] MEDS: SOLU-MEDROL 40 MG IVP SCH (10:32)
[2025-06-06] MEDS: DUONEB NEB SCH (11:31)
[2025-06-06] MEDS: COZAAR PO SCH (13:58)
[2025-06-06] MEDS: HYDRALAZINE HCL IVP PRN (22:15)
[2025-06-07 05:11] LABS: IMMATURE GRANULOCYTE # (AUTO) 0.1 (0.0-1.0); IMMATURE GRANULOCYTE % (AUTO) 0.5 % (0.0-5.0); RDW COEFFICIENT OF VARIATION 13.4 % (11.6-14.8)
[2025-06-07 05:30] LABS: CREATININE 0.94 mg/dL (0.60-1.10)
[2025-06-07 06:11] LABS: AMPHETAMINE SCREEN,URINE NEGATIVE (NEGATIVE); CANNABINOID SCREEN,URINE NEGATIVE (NEGATIVE); COCAIN SCREEN,URINE NEGATIVE (NEGATIVE); METHADONE URINE SCREEN NEGATIVE (NEGATIVE); METHAMPHETAMINES SCREEN,URINE POSITIVE (NEGATIVE); OXYCODONE URINE SCREEN NEGATIVE (NEGATIVE); TRICYCLIC ANTIDEPRESSANTS URIN NEGATIVE (NEGATIVE)
[2025-06-07] MEDS: TUMS CHEWABLE PO ONE (06:24)
[2025-06-07] MEDS: ROCEPHIN 1 GM/50 ML D5W 1 GM/50 ML BAG IV SCH (08:24)
--- NOTE | 2025-06-07 09:00 | DCSUM ---
Admission Date Admission Date: 06/06/25 Discharge Date Discharge Date: 06/07/25 Admission Diagnosis Admission Diagnosis: 1. Acute COPD Exacerbation 2. Hypertension Discharge Diagnosis Discharge Diagnosis: 1. Acute COPD Exacerbation - Improved, needs PFT once exacerbation resolves to formally diagnose 2. Hypertension - Improved, started losartan/HCTZ 3. Methamphetamine abuse - discussed cessation, stopped beta marsha Hospital Provider Hospital Provider: LYRIC EDWARDS, [facility] Summary of History and Physical Summary of History and Physical: 44 yo male with pmh of hypertension presented to the ER with complaints of shortness of breath. States that he has been having an ongoing problem over the last 3 months and it continues to worsen. He was seen in this ER in March and was treated for high blood pressure, tachycardia, and sob. Given nebs and sent home with inhaler and metoprolol. Does not have a PCP and has just been taking what he has had of the medications. Reports symptoms of cough that is occasionally productive with clear and sometimes green sputum, sob on exertion, and chest pressure. Denies any fever, chills, palpitations, n/v/d, edema, or other symptoms. Reports he quit smoking 7 months ago when he first started having the issues and the shortness of breath continues to worsen. Reports difficulty climbing his stairs without getting sob. Does not feel his rescue inhaler is helpful so he does not find himself using it often. Also states that he had a PFT done approx. 8 years ago and showed mild COPD then. ER work-up negative for acute findings. He was given multiple debs, steroids, and vasotec to treat his high BP. Admitted to med/surg observation. Hospital Course Subjective: During stay, patient was treated for COPD exacerbation with steroids, nebs, rocephin, and azith. Sputum culture ordered and collected this am. Do not suspect underlying infection, but covered with azith and cefuroxime upon discharge. Will contact patient if sputum culture growth is not covered with this regimen. SOB improved and lung sounds much better today. Patient states condition feels about the same. O2 sat remaining above 90% without requirement of oxygen. Episode of SOB this morning and oxygen applied for comfort, not due to low sat. Recommend PFT to be ordered by PCP after exacerbation resolves. Rx also sent for medrol dose pack. HTN uncontrolled on metoprolol initially. Started losartan yesterday and BP improved. However, UDS obtained due to chart review of positive for meth and amphetamines previously. Positive for meth as of this am. Patient did admit to meth use this am and states he last used approx 5-6 days ago and smokes it. Discussed risks and harm of meth use. Encouraged cessation. Stopped metoprolol. Gave dose of lasix this am due to reports of chest pressure to see if condition improves with diuretic. D/c with rx for losartan/HCTZ. Of note, leukocytosis present on discharge. Has been receiving steroids. No fever or s/sx of infection. Discussed warning signs to return to ER. Appearance: Pleasant, No Apparent Distress and Alert HEENT: MMM, Supple and No JVD CVS: No Murmur and No Rubs Abdomen: Soft, Non-Tender and No Distention Respiratory: Other (mild expiratory wheezing ) Extremities: No Edema Vital Signs: Most Recent Vital Signs Temperature 97.0 F L 06/07/25 05:40 Temperature Source Temporal Artery Scan 06/07/25 05:40 Temperature Source Infrared 06/06/25 02:47 Pulse Rate 96 06/07/25 07:47 Respiratory Rate 16 06/07/25 07:47 Blood Pressure 157/92 H 06/07/25 05:40 Blood Pressure Mean 113 06/07/25 05:40 Blood Pressure Left Arm 159/97 06/06/25 07:07 Blood Pressure Location Right Arm 06/07/25 05:40 Blood Pressure Position Supine 06/07/25 05:40 O2 Sat by Pulse Oximetry 96 06/07/25 05:40 Oxygen Delivery Method Room Air 06/07/25 08:00 Oxygen Flow Rate 2 06/07/25 07:47 Height 6 ft 06/06/25 07:07 Weight 116 kg 06/06/25 07:07 Telemetry Type Bedside Monitor 06/07/25 07:00 Telemetry Monitoring Continues 06/07/25 07:00 Telemetry Heart Rate 87 06/07/25 07:00 Telemetry SPO2 96 06/07/25 07:00 EKG NM Interval 0.16 06/07/25 07:00 EKG QRS Interval 0.10 06/07/25 07:00 Telemetry Strip Reading NSR 06/07/25 07:00 Imaging: EXAM: CHEST, ONE-VIEW HISTORY: Shortness of breath FINDINGS: Cardiac and mediastinal contours are normal. Pulmonary vasculature is normal. Lungs are clear. Bony thorax is unremarkable. IMPRESSION: Within normal limits EXAM: CT ANGIOGRAPHY OF THE CHEST HISTORY: Dyspnea and wheezing TECHNIQUE: 1.[address] of the CT angiography protocol. Multiplanar and three-dimensional reformations were performed. FINDINGS: Technically adequate for evaluation of the pulmonary arteries. No pulmonary artery filling defect. Normal heart, great vessels and pericardium. No pulmonary parenchymal abnormality. No acute findings of the upper abdomen. IMPRESSION: 1. No evidence of pulmonary artery thrombus 2. No acute findings of the chest Lab Results Last 24 Hours: 06/07/25 06/07/25 05:45 05:08 WBC 26.75 H D RBC 5.58 Hgb 17.0 Hct 50.6 MCV 90.7 MCH 30.5 MCHC 33.6 RDW Coeff of Ryan 13.4 Plt Count 396 Immature Gran % (Auto) 0.5 Neut % (Auto) 87.0 H Lymph % (Auto) 6.4 L [place] % (Auto) 6.0 Eos % (Auto) 0.0 Baso % (Auto) 0.1 Neut # (Auto) 23.3 H Lymph # (Auto) 1.7 [place] # (Auto) 1.6 Eos # (Auto) 0.0 Baso # (Auto) 0.0 Immature Gran # (Auto) 0.1 Sodium 139.2 Potassium 4.48 Chloride 101.4 Carbon Dioxide 25.9 Anion Gap 16.38 BUN 18.1 Creatinine 0.94 Estimated GFR (MDRD) 88.00 BUN/Creatinine Ratio 19.25 Glucose 129.2 H Calcium 9.70 Total Bilirubin 0.62 AST 29.1 ALT 39.4 Alkaline Phosphatase 82.9 Total Protein 7.87 Albumin 4.50 Globulin 3.37 Albumin/Globulin Ratio 1.33 Urine Opiates Screen Negative Ur Oxycodone Screen Negative Urine Methadone Screen Negative Ur Barbiturates Screen Negative U Tricyclic Antidepress Negative Ur Phencyclidine Scrn Negative Ur Amphetamine Screen Negative U Methamphetamines Scrn Positive H U Benzodiazepines Scrn Negative Urine Cocaine Screen Negative U Cannabinoids Screen Negative Discharge Instructions Discharge Planning: Discharge Planning > 40 minutes If patient is discharged with left ventricular systolic dysfunction: na Discharged with a beta marsha? Discharged with an roberth/arb? Discharge Medications: Medications at Discharge (Home Meds & RX) inhalational spacing device (Aerochamber MV spacer) #10 ea 03/14/25 nitroglycerin 0.4 mg sublingual tablet 0.4 mg sublingual Q5M PRN chest #14 tabs 03/14/25 albuterol sulfate 90 mcg/actuation aerosol inhaler (Ventolin HFA) 2 puff inhalation QID PRN shortness of breath or wheezing #8.5 grams 06/07/25 azithromycin 500 mg tablet 500 mg PO DAILY #1 tab 06/07/25 cefuroxime axetil 500 mg tablet 500 mg PO BID #6 tabs 06/07/25 losartan 50 mg-hydrochlorothiazide 12.5 mg tablet 1 tab PO DAILY #30 tabs 06/07/25 methylprednisolone 4 mg tablets in a dose pack (Medrol (Vivek)) See Rx Instructi ons PO .COMPLEX #21 ea 06/07/25 Discharge Plan Discharge Discharge Orders: Discharge Patient (ONCE); Ordered 06/07/25 Ordered By: TICO ENNIS Activity Restrictions/Additional Instructions: Diagnosis: COPD Exacerbation, Methamphetamine use Diet: Low salt Activity: as tolerated Medications: [facility] Stop taking * Metoprolol - cannot take while using meth Start taking * Losartan 50 mg/HCTZ 12.5 mg - daily for high blood pressure * Medrol dose pack - steroids for COPD exacerbation, take as directed until complete * Azithromycin - antibiotic to prevent pneumonia in COPD exacerbation, take tomorrow am * Cefuroxime - antibiotic to prevent pneumonia in COPD exacerbation, next dose tomorrow am * Refill sent for albuterol inhaler Follow-up with new primary care provider as scheduled. Discuss need for pulmonary function test for formal diagnosis of COPD. Stop methamphetamine use as soon as possible. Return to the ER if shortness of breath worsens or O2 sat is found to be low in 80s, chest pain, or palpitations occur. Instructions: COPD (Chronic Obstructive Pulmonary Disease) (GEN), Methamphetamine Use Disorder (GEN), Hypertension (GEN) Patient Disposition: HOME SELF-CARE Prescriptions: New azithromycin 500 mg tablet 500 mg PO DAILY Qty: 1 0RF losartan-hydrochlorothiazide 50-12.5 mg tablet 1 tab PO DAILY Qty: 30 0RF methylprednisolone [Medrol (Vivek)] 4 mg tablets,dose pack See Rx Instructions .ROUTE .COMPLEX Qty: 21 0RF Rx Instructions: for 6 days cefuroxime axetil 500 mg tablet 500 mg PO BID Qty: 6 0RF Rx Instructions: Start tomorrow Continued nitroglycerin 0.4 mg tablet, sublingual 0.4 mg sublingual Q5M PRN (Reason: chest ) Qty: 14 0RF Rx Instructions: do not exceed 3 doses per episode (DME) Aerochamber MV Spacer See Rx Instructions .ROUTE Qty: 10 0RF Rx Instructions: As directed albuterol sulfate [Ventolin HFA] 90 mcg/actuation HFA aerosol inhaler 2 puff inhalation QID PRN (Reason: shortness of breath or wheezing) Qty: 8.5 0RF Discontinued metoprolol succinate 25 mg capsule,sprinkle,ER 24hr 25 mg PO DAILY Qty: 30 0RF Did you review [place] OFFSET PRESS ASSISTANT for ALL controlled substances?: No Discussed opioids are addictive and Narcan is available by prescription or from pharmacy.: No Condition: Good Referrals: DONAVON ANGULO [REFERRING, UNKNOWN] - 06/16/25 10:15 am
[2025-06-07] MEDS: LASIX IVP ONE (09:09)
[2025-06-07 10:27] VITALS: BP 136/98; PULSE 98; RESP 20; TEMP 97.3
== END 2025-06-07 10:45 | disposition home or self-care (01) ==
LOC: SCU 02:19 → ED 02:19 → SCU 07:35
PROVIDERS: ADMIT Hospitalist; ATTEND Nurse Practitioner Family
DX: Z51.81 Encounter for therapeutic drug level monitoring; Z79.899 Other long term (current) drug therapy; D72.829 Elevated white blood cell count, unspecified; F15.10 Other stimulant abuse, uncomplicated; J44.1 Chronic obstructive pulmonary disease with (acute) exacerbation; Z20.822 Contact with and (suspected) exposure to COVID-19; I10 Essential (primary) hypertension